=== PATIENT | male | born 1995 | race African-American/Black ===

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

== ENCOUNTER 2017-02-22 20:43 | Emergency (ER) | payer BC, OTHER ==
[2017-02-22] MEDS ORDERED: diphenhydrAMINE 25 MG CAP ONE (21:59)
[2017-02-22] MEDS ORDERED: predniSONE 20 MG TAB ONE (21:59)
== END 2017-02-22 22:10 | disposition home or self-care (01) ==
LOC: NAV ERS 20:43
DX: R21 Rash and other nonspecific skin eruption (principal)
CPT/HCPCS: 99282; J7506

== ENCOUNTER 2017-03-02 17:09 | Emergency (ER) | payer BC ==
[2017-03-02] MEDS ORDERED: Famotidine 20 MG TAB ONE (17:32)
[2017-03-02] MEDS ORDERED: methylPREDNISolone Sod Succ/PF 125 MG/2 ML VIAL ONE (17:32)
== END 2017-03-02 17:52 | disposition home or self-care (01) ==
LOC: NAV ERS 17:09
DX: R21 Rash and other nonspecific skin eruption (principal); Z79.899 Other long term (current) drug therapy
CPT/HCPCS: 96372; J2930

== ENCOUNTER 2018-04-13 08:01 | Emergency (ER) | payer BC | END 2018-04-13 08:19 | disposition home or self-care (01) | LOC: NAV ERS 08:01 | DX: J06.9 Acute upper respiratory infection, unspecified (principal) | CPT/HCPCS: 99283 ==

== ENCOUNTER 2018-10-14 13:23 | Emergency (ER) | payer BC | END 2018-10-14 13:42 | disposition home or self-care (01) | LOC: NAV ERS 13:23 | DX: B86 Scabies (principal) | CPT/HCPCS: 99282 ==

== ENCOUNTER 2019-12-14 00:27 | Emergency (ER) | payer BC, SELFPAY ==
[2019-12-14] MEDS ORDERED: Ibuprofen 200 MG TAB ONE (00:42)
== END 2019-12-14 00:48 | disposition home or self-care (01) ==
LOC: NAV ERS 00:27
DX: S00.83XA Contusion of other part of head, initial encounter (principal); S60.222A Contusion of left hand, initial encounter; S50.02XA Contusion of left elbow, initial encounter; S00.03XA Contusion of scalp, initial encounter; Y04.0XXA Assault by unarmed brawl or fight, initial encounter
CPT/HCPCS: 99283

== ENCOUNTER 2020-05-08 10:58 | Emergency (ER) | payer SELFPAY ==
[2020-05-09 01:34] LABS: SARS-CoV-2 PCR by NAA Not Detected (NotDetected)
== END 2020-05-08 11:55 | disposition home or self-care (01) ==
LOC: NAV ERS 10:58
DX: J02.9 Acute pharyngitis, unspecified (principal); Z20.822 Contact with and (suspected) exposure to COVID-19
CPT/HCPCS: 87081; 87430; 87635; 99283; U0003; U0005

== ENCOUNTER 2021-04-29 18:57 | Emergency (ER) | payer SELFPAY ==
[2021-04-29] MEDS ORDERED: predniSONE 20 MG TAB ONE (19:26)
== END 2021-04-29 19:30 | disposition home or self-care (01) ==
LOC: NAV ERS 18:57
DX: T78.40XA Allergy, unspecified, initial encounter (principal); L29.9 Pruritus, unspecified
CPT/HCPCS: 99283; J7512

== ENCOUNTER 2021-05-27 17:39 | Emergency (ER) | payer SELFPAY | END 2021-05-27 17:59 | disposition home or self-care (01) | LOC: NAV ERS 17:39 | DX: R21 Rash and other nonspecific skin eruption (principal) | CPT/HCPCS: 99282 ==

== ENCOUNTER 2021-10-22 17:21 | Emergency (ER) | payer OTHER, SELFPAY ==
[2021-10-22] MEDS ORDERED: Ibuprofen 800 MG TAB ONE (17:32)
== END 2021-10-22 17:43 | disposition home or self-care (01) ==
LOC: NAV ERS 17:21
DX: S39.012A Strain of muscle, fascia and tendon of lower back, initial encounter (principal); S00.511A Abrasion of lip, initial encounter; V89.2XXA Person injured in unspecified motor-vehicle accident, traffic, initial encounter
CPT/HCPCS: 99284

== ENCOUNTER 2021-11-05 18:15 | Emergency (ER) | payer SELFPAY ==
[2021-11-05] MEDS ORDERED: Amoxicillin/Potassium Clav 875 MG TAB ONE (18:34)
[2021-11-05] MEDS ORDERED: Ibuprofen 200 MG TAB ONE (18:34)
== END 2021-11-05 18:39 | disposition home or self-care (01) ==
LOC: NAV ERS 18:15
DX: K08.89 Other specified disorders of teeth and supporting structures (principal)
CPT/HCPCS: 99282

== ENCOUNTER 2021-11-28 06:59 | Emergency (ER) | payer SELFPAY | END 2021-11-28 07:25 | disposition home or self-care (01) | LOC: NAV ERS 06:59 | DX: H69.92 Unspecified Eustachian tube disorder, left ear (principal) | CPT/HCPCS: 99282 ==

== ENCOUNTER 2022-04-15 18:48 | Emergency (ER) | payer BC, SELFPAY ==
[2022-04-15] MEDS ORDERED: predniSONE 20 MG TAB ONE (20:42)
== END 2022-04-15 20:45 | disposition home or self-care (01) ==
LOC: NAV ERS 18:48
DX: L50.9 Urticaria, unspecified (principal)
CPT/HCPCS: 99282; J7512

== ENCOUNTER 2022-07-20 16:05 | Emergency (ER) | payer BC ==
[2022-07-20] MEDS ORDERED: Doxycycline 100 MG CAP ONE (16:31)
== END 2022-07-20 16:45 | disposition home or self-care (01) ==
LOC: NAV ERS 16:05
DX: L73.1 Pseudofolliculitis barbae (principal)
CPT/HCPCS: 99282

== ENCOUNTER 2022-12-30 20:05 | Emergency (ER) | payer BC | END 2022-12-30 21:17 | disposition home or self-care (01) | LOC: NAV ERS 20:05 | DX: R21 Rash and other nonspecific skin eruption (principal) | CPT/HCPCS: 99282 ==

== ENCOUNTER 2023-09-14 22:51 | Emergency (ER) | payer BC, SELFPAY ==
[2023-09-14] MEDS ORDERED: predniSONE 20 MG TAB ONE (23:11)
== END 2023-09-14 23:21 | disposition home or self-care (01) ==
LOC: NAV ERS 22:51
DX: L74.0 Miliaria rubra (principal)
CPT/HCPCS: 99282; J7512

== ENCOUNTER 2023-11-03 17:50 | Emergency (ER) | payer SELFPAY ==
[2023-11-03] MEDS ORDERED: Sulfameth/Trimethoprim DS 800-160mg TAB ONE (18:19)
== END 2023-11-03 18:29 | disposition home or self-care (01) ==
LOC: NAV ERS 17:50
DX: L03.112 Cellulitis of left axilla (principal); L03.111 Cellulitis of right axilla; L03.116 Cellulitis of left lower limb; L03.115 Cellulitis of right lower limb; L03.311 Cellulitis of abdominal wall; L03.313 Cellulitis of chest wall
CPT/HCPCS: 99282

== ENCOUNTER 2023-11-07 14:45 | Emergency (ER) | payer SELFPAY ==
[2023-11-07] MEDS ORDERED: predniSONE 20 MG TAB ONE (15:14)
== END 2023-11-07 15:39 | disposition home or self-care (01) ==
LOC: NAV ERS 14:45
DX: L29.9 Pruritus, unspecified (principal)
CPT/HCPCS: 99282; J7512

== ENCOUNTER 2023-11-14 03:23 | Emergency (ER) | payer SELFPAY ==
[2023-11-14] MEDS ORDERED: Boostrix 0.5 ML (Tdap) VIAL (>/=7 yrs of age) ONE (04:38)
== END 2023-11-14 04:55 | disposition home or self-care (01) ==
LOC: NAV ERS 03:23
DX: S01.01XA Laceration without foreign body of scalp, initial encounter (principal); Z23 Encounter for immunization; W22.8XXA Striking against or struck by other objects, initial encounter
CPT/HCPCS: 12002; 90471; 90715

== ENCOUNTER 2023-11-21 15:48 | Emergency (ER) | payer SELFPAY | END 2023-11-21 16:08 | disposition home or self-care (01) | LOC: NAV ERS 15:48 | DX: S01.01XD Laceration without foreign body of scalp, subsequent encounter (principal); Y04.8XXD Assault by other bodily force, subsequent encounter ==

== ENCOUNTER 2024-01-11 16:45 | Emergency (ER) | payer SELFPAY | END 2024-01-11 17:30 | disposition home or self-care (01) | LOC: NAV ERS 16:45 | DX: L29.9 Pruritus, unspecified (principal) | CPT/HCPCS: 99282 ==

== ENCOUNTER 2024-02-08 21:09 | Emergency (ER) | payer SELFPAY | END 2024-02-08 21:53 | disposition left against medical advice (07) | LOC: NAV ERS 21:09 | DX: Z53.21 Procedure and treatment not carried out due to patient leaving prior to being seen by health care provider (principal) ==

== ENCOUNTER 2024-02-09 08:29 | Emergency (ER) | payer OTHER, SELFPAY ==
[2024-02-09] MEDS ORDERED: Acetaminophen 325 MG TAB ONE (09:19)
== END 2024-02-09 09:55 | disposition home or self-care (01) ==
LOC: NAV ERS 08:29
DX: S39.012A Strain of muscle, fascia and tendon of lower back, initial encounter (principal); S29.012A Strain of muscle and tendon of back wall of thorax, initial encounter; V40.5XXA Car driver injured in collision with pedestrian or animal in traffic accident, initial encounter
CPT/HCPCS: 72072; 72100; 99284